=== PATIENT | female | born 1995 | race Caucasian/White ===

== ENCOUNTER 2017-05-19 21:40 | Emergency (ER) | payer SELFPAY ==
[~2017-05-19] VITALS: Ht 165.1 cm; Wt 68.2 kg
[~2017-05-19 21:40] MED LIST: COMBIVENT INH14.7 GM IH; DEPO-PROVER150 MG/M1 IM; LORTAB 5/500 501 TAB PO; NAPROSYN500 MG PO; NO HOME MEDICATIONS
[2017-05-19 21:57] VITALS: BP 136/82; TEMP 98.5
[2017-05-19] MEDS ORDERED: PREDNISONE20 MG PO (22:24)
[2017-05-19 22:41] VITALS: PULSE 74
== END 2017-05-19 22:42 | disposition home or self-care (01) ==
LOC: COL.ER 21:40
DX: J45.901 Unspecified asthma with (acute) exacerbation (principal)
CPT/HCPCS: J7512

== ENCOUNTER 2017-11-21 14:50 | Emergency (ER) | payer MEDICAID ==
[~2017-11-21] VITALS: Ht 165.1 cm; Wt 68.2 kg
[~2017-11-21 14:50] MED LIST changes: +PREDNISONE20 MG PO
[2017-11-21 14:56] VITALS: TEMP 98.2
[2017-11-21 16:05] LABS: COLLECTION METHOD CLEAN CATCH
[2017-11-21 16:10] LABS: BASO # 0.1 (0.0-0.2); BASO % 0.4 % (0.0-2.0); EOS # 0.5 (0.0-0.7); EOS % 4.2 % (0-4.0); GRAN # 10.1 (1.4-6.5); GRAN % 78.3 % (42.2-75.2); HEMATOCRIT 40.3 % (37.0-47.0); HEMOGLOBIN 13.8 g/dl (12.5-16.0); LYMPH # 1.3 (1.2-3.4); MEAN CELL VOLUME 92 fl (80.0-100.0); MEAN CORPUSCULAR HEMOGLOBIN 32 pg (27.0-31.0); MEAN CORPUSCULAR HGB CONC 34 g/dl (33.0-37.0); MEAN PLATELET VOLUME 10.2 fl (7.4-10.4); MONO # 0.8 (0.1-0.6); MONO % 5.9 % (1.7-9.3); PLATELET COUNT 351 K/mm3 (130-400); RED BLOOD COUNT 4.36 M/mm3 (4.10-5.30); REDCELL DISTRIBUTION WIDTH-CV 12.4 % (11.5-14.5)
[2017-11-21 16:12] LABS: MUCOUS Present /lpf; PH 6 (5-8); URINE APPEARANCE Hazy; URINE BACTERIA None Seen /hpf; URINE BILIRUBIN Negative (NEGATIVE); URINE BLOOD Negative (NEGATIVE); URINE COLOR Yellow; URINE GLUCOSE Negative (NEGATIVE); URINE KETONE Negative (NEGATIVE); URINE LEUKOCYTE ESTERASE Negative (NEGATIVE); URINE NITRATE Negative (NEGATIVE); URINE PROTEIN(semi-quant) Negative (NEGATIVE); URINE RBC 0-2 /hpf; URINE UROBILINOGEN Negative (NEGATIVE)
[2017-11-21 16:24] LABS: ALBUMIN 3.8 gm/dL (3.5-5.0); BILIRUBIN,TOTAL 0.5 mg/dL (0.0-1.0); C-REACTIVE PROTEIN 2.1 mg/dL (0.0-0.9); CALCIUM 9.1 mg/dL (8.4-10.2); CREATININE, serum 0.63 mg/dL (0.52-1.25); POTASSIUM 3.6 mmol/L (3.4-5.0); TOTAL PROTEIN 7.4 gm/dL (6.4-8.2)
[2017-11-21] MEDS ORDERED: ULTRAM 50MG TAB50 MG PO (17:12)
[2017-11-21 17:19] VITALS: BP 129/72; PULSE 79
== END 2017-11-21 17:20 | disposition home or self-care (01) ==
LOC: COL.ER 14:50
PROVIDERS: Family Medicine
DX: G89.18 Other acute postprocedural pain (principal); R10.30 Lower abdominal pain, unspecified; F17.210 Nicotine dependence, cigarettes, uncomplicated; Z90.49 Acquired absence of other specified parts of digestive tract
CPT/HCPCS: J1885; J2405; J7030; Q9967

== ENCOUNTER 2019-01-08 20:33 | Emergency (ER) | payer SELFPAY ==
[~2019-01-08] VITALS: Ht 165.1 cm; Wt 63.6 kg
[~2019-01-08 20:33] MED LIST changes: +ULTRAM 50MG TAB50 MG PO
[2019-01-08 20:37] VITALS: BP 117/76; TEMP 99.4
[2019-01-08 22:48] VITALS: PULSE 89
== END 2019-01-08 22:48 | disposition home or self-care (01) ==
LOC: COL.ER 20:33
DX: S80.01XA Contusion of right knee, initial encounter (principal); J45.909 Unspecified asthma, uncomplicated; F17.210 Nicotine dependence, cigarettes, uncomplicated; Z88.0 Allergy status to penicillin; W10.9XXA Fall (on) (from) unspecified stairs and steps, initial encounter; Y92.009 Unspecified place in unspecified non-institutional (private) residence as the place of occurrence of the external cause
CPT/HCPCS: J1170; L0174